=== PATIENT | male | born 1995 ===

== ENCOUNTER → 2017-09-18 | Emergency (ER) | payer BC ==
[~2017-09-18] VITALS: Ht 167.6 cm; Wt 95.5 kg
[~2017-09-18] MED LIST: BACTRIM DS 8001 TAB PO; NORCO 325 MG-51 TAB PO
[2017-09-18 14:00] VITALS: BP 149/87; PULSE 122; TEMP 98.4
== END ==
LOC: COL.ER 13:55
DX: L03.115 Cellulitis of right lower limb (principal); L02.415 Cutaneous abscess of right lower limb
CPT/HCPCS: J2270; J2550

== ENCOUNTER → 2021-12-18 | Outpatient (CLI) | payer BC | LOC: COL.RAD 12-09 09:45 | DX: K76.0 Fatty (change of) liver, not elsewhere classified (principal) ==